=== PATIENT | male | born 1985 | race Two or more races ===

== ENCOUNTER 2022-07-12 23:01 | Emergency (ER) | payer OTHER ==
[~2022-07-12] VITALS: Ht 152.4 cm; Wt 79.4 kg
[2022-07-13] MEDS ORDERED: CELEBREX200MG PO (03:53)
== END 2022-07-13 04:20 | disposition home or self-care (01) ==
LOC: ER 23:01
DX: S29.9XXA Unspecified injury of thorax, initial encounter (principal); W18.30XA Fall on same level, unspecified, initial encounter; Y93.9 Activity, unspecified; Y92.019 Unspecified place in single-family (private) house as the place of occurrence of the external cause; Z88.0 Allergy status to penicillin; Z91.013 Allergy to seafood; Z88.2 Allergy status to sulfonamides; S69.91XA Unspecified injury of right wrist, hand and finger(s), initial encounter